=== PATIENT | female | born 1950 | race Two or more races ===

== ENCOUNTER 2018-08-24 10:18 | Outpatient (CLI) | payer OTHER | END 2018-08-24 17:00 | disposition home or self-care (01) | LOC: SONOGRAMA 10:18 | DX: R10.2 Pelvic and perineal pain (principal); R10.84 Generalized abdominal pain ==

== ENCOUNTER → 2018-08-26 | Outpatient (CLI) | payer OTHER | END | disposition home or self-care (01) | LOC: SONOGRAMA 10:12 | DX: E04.1 Nontoxic single thyroid nodule (principal) ==

== ENCOUNTER 2023-11-12 08:18 | Outpatient (CLI) | payer OTHER | END 2023-11-12 08:21 | disposition home or self-care (01) | LOC: SONOGRAMA 08:18 | PROVIDERS: ATTEND Pathology Anatomic Pathology & Clinical Pathology | DX: D34 Benign neoplasm of thyroid gland (principal); E06.3 Autoimmune thyroiditis; E04.2 Nontoxic multinodular goiter ==